=== PATIENT | male | born 1970 | race Caucasian/White ===

== ENCOUNTER 2025-06-01 13:00 | Outpatient (CLI) | payer BC, SELFPAY ==
--- OUTSIDE RECORDS SUMMARY | 2025-06-05 09:16 | XMS_ITS | Clinical Summary ---
Author Organization [facility] Address [address] [place] [address] Care Team Providers Care Front Office Assistant Name Role Phone Ariel De La Cruz MD Primary Care Provider [phone] Allergies No known active allergies Medications lisinopril-hydro chlorothiazide (PRINZIDE,ZESTOR ETIC) 10-12.5 MG per tablet Take 1 tablet by mouth Daily. Active raNITIdine (ZANTAC) 150 MG tablet Take 150 mg by mouth 2 (Two) Times a Day. Active diclofenac (VOLTAREN) 75 MG EC tablet Take 75 mg by mouth 2 (Two) Times a Day. Active fexofenadine (CHAVO) 60 MG tablet Take 60 mg by mouth Daily. Active buPROPion SR (WELLBUTRIN SR) 150 MG 12 hr tablet Take 150 mg by mouth 2 (Two) Times a Day. Active metoprolol succinate XL (TOPROL-XL) 100 MG 24 hr tablet Take 1 tablet by mouth Daily. 01/27/2023 Active Active Problems No known active problems Family History Medical History Relation Name Comments No Known Problems Father No Known Problems Mother Relation Name Status Comments Father Mother Social History Tobacco Use Types Packs/Day Years Used Date Smoking Tobacco: Former Smokeless Tobacco: Never Alcohol Use Standard Drinks/Week Comments Yes 0 (1 standard drink = 0.6 oz pur e alcohol) Abuse Screen Answer Date Recorded Unsafe at Home or Work/School Not on file Feels Threatened by Someone? Not on file 08/2023 Does Anyone Keep You from Co ntacting Others or Doint Things Outside the Home? Not on file 06/18/2023 Physical Sign of Abuse Present Not on file 1 Housing Stability Answer Date Recorded Current Living Arrangements Not on file 06/07 Potentially Unsafe Housing Conditions Not on david e 06/18/2023 Family and Community Support Answer Josse e Recorded Help with Day-to-Day Activities Not on file 06/18/2023 Lonely or Isolated Not on file 06/18/2023 Employment Answer Date Recorded Do you want help finding or keeping work or a arley b? Not on file 06/18/2023 Disabilities Answer Date Recorded Concentrating, Remembering, or Making Decisions Difficulty Not on file 06/18/2023 Doing Errands Independently Difficulty Not on fi le 06/18/2023 Education Answer Date Recorded Help with school or training? Not on file Preferred Language Not on file 06/18/2023 Sex and Gender Information Value Date Recorded Sex Assigned at Not on file Legal Sex Male 1:33 PM EDT Gender Identity Not on file Sexual Orientation Not on file Last Filed Vital Signs Vital Sign Reading Time Taken Comments Blood Pressure - - Pulse - - Temperature 36.5 C (97.7 F) 06/18/2018 9:41 AM EDT Respiratory Rate - - Oxygen Saturation - - Inhaled Oxygen Concentration - - Weight 102 kg (225 lb) 06/18/2018 9:41 AM EDT Height 193 cm (6' 4 ) 06/18/2018 9:41 AM EDT Body Mass Index 27.39 06/18/2018 9:41 AM EDT Plan of Treatment Health Maintenance Due Date Last Done Comments TDAP/TD VACCINES (1 - Tdap) 1990 COLOGUARD 2016 COLON CANCER SCREENING 5 YEAR SIGMOIDOSCOPY 2016 COLONOSCOPY [address] CANCER SCREENING 2016 CT COLONOGRAPHY 2016 FECAL OCCULT BLOOD TEST 2016 FIT Testing (1 year) 2016 ANNUAL PHYSICAL 06/17/2018 HEPATITIS C SCREENING 06/17/2018 Pneumococcal Vaccine 50+ (1 of 1 - PCV) 2021 ZOSTER VACCINE (1 of 2) 2021 INFLUENZA VACCINE 04/07/2025 Insurance HUMAN Care Teams Front Office Assistant Relationship Specialty Start Date End Date Ariel De La Cruz MD [address] [place] [address] PCP - General Family Medicine 06/09/18
--- OUTSIDE RECORDS SUMMARY | 2025-06-05 09:16 | XMS_ITS | Clinical Summary ---
Author Organization [facility] Address [address] [place] [address] Care Team Providers Care Stator Connector Name Role Phone Ariel De La Cruz MD Primary Care Provider [phone] Allergies Active Allergy Reactions Criticality Noted Date Comments Apixaban Rash Low 10/15/2022 Possible reaction Medications metoprolol succinate XL (Toprol-XL) 100 MG 24 hr tablet Take 1 tablet (100 mg) by mouth 1 (one) time each day. Do not crush or chew. Active omeprazole OTC (PriLOSEC OTC) 20 MG EC tablet Take 1 tablet (20 mg) by mouth 1 (one) time each day. Do not crush, chew, or split. Active fexofenadine-ps eudoephedrine ER (Crystal-D 24) 180-240 MG 24 hr tablet Take 1 tablet by mouth 1 (one) time each day. Do not crush, chew, or split. Active buPROPion XL (Wellbutrin XL) 150 MG 24 hr tablet Take 1 tablet (150 mg) by mouth 1 (one) time each day. Do not crush, chew, or split. Active celecoxib (CeleBREX) 200 MG capsule Take 1 capsule (200 mg) by mouth 1 (one) time each day. 11/30/2022 Active ASPIRIN 81 MG chewable tablet Chew 1 tablet (81 mg) 1 (one) time each day. Active Active Problems Problem Noted Date Diagnosed Date Tachycardia 05/27/2022 Hypercholesteremia 05/14/2022 Obstructive sleep apnea 05/14/2022 Essential hypertension, benign 05/14/2022 Paroxysmal atrial fibrillation 05/14/2022 Acid reflux 05/14/2022 Resolved Problems Problem Noted Date Diagnosed Date Resolved Date S/P ablation of atrial fibrillation 12/17/2022 05/28/2025 Rash 10/15/2022 05/28/2025 Other fatigue 05/28/2022 05/28/2025 Chronic atrial fibrillation 05/14/2022 05/27/2022 Social History Tobacco Use Types Packs/Day Years Used Date Smoking Tobacco: Former Cigarettes Smokeless Tobacco: Current Chew Tobacco Cessation:Ready to Q uit: Not Asked; Counseling Given: Not Answered Comments:Dips 1 can per day Alcohol Use Standard Drinks/Week Comments Yes 5 (1 standard drink = 0.6 oz pur e alcohol) 5or 6 or more a week PHQ-2 Answer Date Recorded Patient Health Questionnaire-2 Score 0 09/15/2023 Sex and Gender Information Value Date Recorded Sex Assigned at Not on file Legal Sex Male 6:30 PM EDT Gender Identity Not on file Sexual Orientation Not on file Last Filed Vital Signs Vital Sign Reading Time Taken Comments Blood Pressure 136/86 09/15/2023 2:49 PM EST Pulse 83 09/15/2023 2:49 PM EST Temperature 37 C (98.6 F) 09/17/2022 11:00 AM EST Respiratory Rate 14 09/17/2022 2:00 PM EST Oxygen Saturation 95% 09/15/2023 2:49 PM EST Inhaled Oxygen Concentration - - Weight 114 kg (252 lb 3.3 oz) 09/15/2023 2:49 PM EST Height 193 cm (6' 4 ) 09/15/2023 2:49 PM EST Body Mass Index 30.7 09/15/2023 2:49 PM EST Plan of Treatment Health Maintenance Due Date Last Done Comments [facility]-HIV Screening 1971 [facility]-Hepatitis C Screening 1971 [facility]-Infant/Child/Adol SDOH Screenings 1971 [facility]- SDOH Screenings 1989 [facility]-Adult SDOH Screenings 1989 [facility]-DTaP,Tdap,and Td Vaccines (1 - Tdap) 1990 [facility]-Hepatitis B Vaccines (1 of 3 - 19+ 3-dose series) 1990 CT Colonography 2016 Colonoscopy 2016 FIT-DNA 2016 FIT 2016 FOBT 2016 Sigmoidoscopy 2016 [facility]-Colorectal Cancer Screening 2016 [facility]-Pneumococcal Vaccine: 50+ Years (1 of 1 - PCV) 2021 [facility]-Zoster Vaccines (1 of 2) 2021 [facility]-Depression Screening 09/15/2024 09/15/2023 [id number] Vaccine (1 - season) 2025 [facility]-Influenza Vaccine (#1) 2025 [facility]-Obesity Intervention Completed 024, 12/16/2022, 10/15/2022, Additional history exists HPV Vaccines Aged Out No longer eligi ble based on patient's age to complete this topic [facility]-HIB Vaccines Aged Out No longer e ligible based on patient's age to complete this topic [facility]-Hepatitis A Vaccines Aged Out No longer eligible based on patient's age to complete this topic [facility]-IPV Vaccines Aged Out No longer e ligible based on patient's age to complete this topic [facility]-Rotavirus Vaccines Aged Out No lo nger eligible based on patient's age to complete this topic Insurance [facility] [place] [id number] Advance Directives * Full Code (Latest Code Status on File) Date Activated Date Inactivated Comments 09/17/2022 10:46 AM 09/17/2022 5:09 PM Question Answer Comments Patient has decision-making capacity? Yes Care Teams Stator Connector Relationship Specialty Start Date End Date Ariel De La Cruz MD [address] [place], [place] [address]e [place] [id number] PCP - General 05/27/22
== END 2025-06-01 23:59 ==
PROVIDERS: PCP Nurse Practitioner; Visit Provider Nurse Practitioner
DX: B48.8 Other specified mycoses (principal); H62.43 Otitis externa in other diseases classified elsewhere, bilateral
CPT/HCPCS: 87070; 87077; 87186